=== PATIENT | female | born 1985 | race Caucasian/White ===

== ENCOUNTER 2018-09-27 05:54 | Inpatient (IN) | payer OTHER ==
[2018-09-27] VITALS (32 sets, daily range): BP systolic 74–137; BP diastolic 35–75; PULSE 72–114; TEMP 97.4–99.9
[~2018-09-27] VITALS: Ht 160.1 cm; Wt 85.0 kg
[~2018-09-27 05:54] MED LIST: PERCOCET 325 MG1 TA2 PO; PRENATAL VITAMI1 T12 PO
[2018-09-27 06:55] LABS: BASO % 0.2 % (0.0-2.0); EOS % 0.2 % (0-4.0); GRAN # 11.9 (1.4-6.5); GRAN % 73.3 % (42.2-75.2); HEMATOCRIT 43.2 % (37.0-47.0); HEMOGLOBIN 14.1 g/dl (12.5-16.0); LYMPH # 2.9 (1.2-3.4); LYMPH % 18.1 % (20.0-51.0); MEAN CELL VOLUME 91 fl (80.0-100.0); MEAN CORPUSCULAR HEMOGLOBIN 30 pg (27.0-31.0); MEAN CORPUSCULAR HGB CONC 33 g/dl (33.0-37.0); MEAN PLATELET VOLUME 11.5 fl (7.4-10.4); MONO # 1.3 (0.1-0.6); MONO % 7.7 % (1.7-9.3); PLATELET COUNT 182 K/mm3 (130-400); RED BLOOD COUNT 4.75 M/mm3 (4.10-5.30); REDCELL DISTRIBUTION WIDTH-CV 13.5 % (11.5-14.5)
--- NOTE | 2018-09-27 07:56 | NUR ---
0608 PATIENT HERE FOR CONTRACTIONS AND SROM AT 0500, YELLOW COLOR. ASSESSMENT COMPLETED. EFM ON FHT 125 BABY VERY ACTIVE. CONTRACTIONS EVERY 2-4. PATIENT BREATHS THROUGH EACH CONTRACTIONS.DR MARIE CALLED AND UPDATED. ORDERS GIVEN TO ADMIT FOR LABOR, AND EPIDURAL.
--- NOTE | 2018-09-27 13:28 | NUR ---
1150 DR MARIE AT BEDSIDE. PATIENT CONTINUES TO PUSH WITH EACH CONTRACTION. [address]Y [address] MARIE AT THIS TIME. PATIENT TOLERATES WELL. CORD CLAMPED AND UP BY DR MARIE AND BABY TO MOMS CHEST SKIN TO SKIN. STRONG CRY NOTED. 1212 PLACENTA DELIVERED AT THIS TIME AND PITOCIN STARTED AT 333/HR. FUNDUS FIRM. BLEEDING WNL. REPAIR DONE BY DR DIXON AT THIS TIME. PATIENT TOLERATES WELL. BABY REMAINS SKIN TO SKIN.
[2018-09-28 04:00] VITALS: BP 101/54; PULSE 82; TEMP 98.2
[2018-09-28 08:04] VITALS: BP 106/49; PULSE 72; TEMP 97.4
--- NOTE | 2018-09-28 08:46 | NUR ---
Initial visit; Compliance Nurse offered congratulations to Father and Mother for the of their son and thanked them for choosing [facility].
[2018-09-28 19:35] VITALS: BP 111/55; PULSE 74; TEMP 98.5
[2018-09-29 08:52] VITALS: BP 113/72; PULSE 84; TEMP 98.1
== END 2018-09-29 17:04 | disposition home or self-care (01) | DRG 807 ==
LOC: LDRO 05:54 → LDR 06:38 → LDRO 06:39 → LDR 06:39 → OB 06:39
PROVIDERS: ADMIT Obstetrics & Gynecology
PROC: 10E0XZZ Delivery of Products of Conception, External Approach (ICD-10-PCS; principal; 2018-09-27)
PROC: 0KQM0ZZ Repair Perineum Muscle, Open Approach (ICD-10-PCS; 2018-09-27)
DX: O34.219 Maternal care for unspecified type scar from previous cesarean delivery (principal); Z37.0 Single live birth; Z3A.40 40 weeks gestation of pregnancy; O42.02 Full-term premature rupture of membranes, onset of labor within 24 hours of rupture; O77.0 Labor and delivery complicated by meconium in amniotic fluid; O70.1 Second degree perineal laceration during delivery
CPT/HCPCS: J2590; J7120